=== PATIENT | female | born 1990 | race Caucasian/White ===

== ENCOUNTER 2016-10-24 17:46 | Emergency (ER) | payer MEDICAID ==
[~2016-10-24] VITALS: Ht 165.1 cm; Wt 77.2 kg
[~2016-10-24 17:46] MED LIST: IBUP-1222 PO; ONDA4TAB7; OXYC-302 PO; PREN1TAB60
[2016-10-24] MEDS ORDERED: SODIUM CHLORIDE 0.9% 1,000ML IVBOLUS ONE (18:00)
[2016-10-24 18:41] VITALS: BP 123/76
[2016-10-24 18:41] LABS: HEMOGLOBIN 13.9 g/dL (11.7-16.4)
[2016-10-24 18:55] LABS: ASPARTATE AMINO TRANSFERASE 12 U/L (15-37); BLOOD UREA NITROGEN 11 mg/dL (7-18)
== END 2016-10-24 19:55 | disposition home or self-care (01) ==
LOC: ED 19:49
DX: O20.9 Hemorrhage in early pregnancy, unspecified (principal)
CPT/HCPCS: 36415; 76830; 80053; 84702; 85025; 99285; J7030

== ENCOUNTER 2017-04-03 18:17 | Outpatient (CLI) | payer MEDICAID ==
[~2017-04-03] VITALS: Ht 162.6 cm; Wt 81.8 kg
[2017-04-03 18:33] VITALS: BP 118/57
== END 2017-04-03 19:25 | disposition home or self-care (01) ==
LOC: LDOP 18:17
PROVIDERS: ATTEND Obstetrics & Gynecology
DX: O26.892 Other specified pregnancy related conditions, second trimester (principal); O9A.212 Injury, poisoning and certain other consequences of external causes complicating pregnancy, second trimester; M54.9 Dorsalgia, unspecified; V89.2XXA Person injured in unspecified motor-vehicle accident, traffic, initial encounter; Z3A.21 21 weeks gestation of pregnancy
CPT/HCPCS: 59025; 99211; G0463

== ENCOUNTER 2017-04-03 19:29 | Emergency (ER) | payer MEDICAID ==
[~2017-04-03] VITALS: Ht 162.6 cm; Wt 80.0 kg
[2017-04-03 19:40] VITALS: BP 117/70
== END 2017-04-03 21:14 | disposition home or self-care (01) ==
LOC: ED 19:33
DX: O9A.212 Injury, poisoning and certain other consequences of external causes complicating pregnancy, second trimester (principal); Z3A.20 20 weeks gestation of pregnancy; S39.012A Strain of muscle, fascia and tendon of lower back, initial encounter; V49.9XXA Car occupant (driver) (passenger) injured in unspecified traffic accident, initial encounter; Y93.89 Activity, other specified; Y92.89 Other specified places as the place of occurrence of the external cause; Y99.8 Other external cause status
CPT/HCPCS: 59025; 81001; 99211; 99283; G0463

== ENCOUNTER 2017-07-05 16:56 | Outpatient (CLI) | payer MEDICAID ==
[~2017-07-05] VITALS: Ht 162.6 cm; Wt 90.0 kg
[2017-07-05 17:13] VITALS: BP 118/69
== END 2017-07-05 18:00 | disposition home or self-care (01) ==
LOC: LDOP 16:56
PROVIDERS: ATTEND Obstetrics & Gynecology
DX: O26.893 Other specified pregnancy related conditions, third trimester (principal); R10.9 Unspecified abdominal pain; Z3A.32 32 weeks gestation of pregnancy
CPT/HCPCS: 59025; 82962; 99211; G0463

== ENCOUNTER 2017-08-04 23:01 | Outpatient (CLI) | payer MEDICAID ==
[~2017-08-04] VITALS: Ht 162.6 cm; Wt 89.5 kg
[2017-08-04 23:12] VITALS: BP 130/75
== END 2017-08-05 01:13 | disposition home or self-care (01) ==
LOC: LDOP 23:01
PROVIDERS: ATTEND Obstetrics & Gynecology
DX: O62.9 Abnormality of forces of labor, unspecified (principal); Z3A.38 38 weeks gestation of pregnancy
CPT/HCPCS: 59025; 99211; G0463

== ENCOUNTER 2017-08-10 20:57 | Inpatient (IN) | payer MEDICAID ==
[~2017-08-10] VITALS: Ht 162.6 cm; Wt 89.1 kg
[2017-08-10] MEDS ORDERED: D5%-LACTATED RINGERS 1,000 ML IV SCH (20:58)
[2017-08-10] MEDS ORDERED: OXYTOCIN 30U/ 0.9% NaCL 500ML 500 ML IV PRN (20:58)
[2017-08-10] MEDS ORDERED: OXYTOCIN 30U/ 0.9% NaCL 500ML 500 ML IV ONE (20:58)
[2017-08-10] MEDS ORDERED: MISOPROSTOL 25 MCG TABLET VG PRN (21:00)
[2017-08-10] MEDS ORDERED: SODIUM CITRATE/CITRIC ACID 30 ML UDC PO PRN (21:00)
[2017-08-10] MEDS ORDERED: ONDANSETRON 2MG/ML, 2ML IVPush PRN (21:00)
[2017-08-10] MEDS ORDERED: CALCIUM CARBONATE 500 MG TAB.CHEW PO PRN (21:00)
[2017-08-10] MEDS ORDERED: FENTANYL PF 100 MCG/2ML IV PRN (21:00)
[2017-08-10] MEDS ORDERED: METOCLOPRAMIDE 5 MG/ML, 2ML IVPush PRN (21:00)
[2017-08-10] MEDS ORDERED: TERBUTALINE 1 MG/ML, 1ML IVPush PRN (21:00)
[2017-08-10] MEDS ORDERED: FENTANYL PF 100 MCG/2ML IVPush PRN (21:00)
[2017-08-10] MEDS ORDERED: NEWBORN KIT ONE (21:22)
[2017-08-10] MEDS: LACTATED RINGERS 1,000 ML IV SCH (21:25)
[2017-08-10 21:30] LABS: BASOPHILS # (AUTO) 0.03 x10^3/uL (0-0.1); BASOPHILS % (AUTO) 0 % (0-1); EOSINOPHILS # (AUTO) 0.05 x10^3/uL (0-0.4); EOSINOPHILS % (AUTO) 1 % (1-7); LYMPHOCYTES # (AUTO) 2.28 x10^3/uL (1-3.4); LYMPHOCYTES % (AUTO) 28 % (22-44); MD NO; MEAN CORPUSCULAR HEMOGLOBIN 29.4 pg (27.0-34.8); MEAN CORPUSCULAR HGB CONC 33.4 g/dL (32.4-35.8); MEAN PLATELET VOLUME 9.2 fL (7.4-10.4); MONOCYTES # (AUTO) 0.45 x10^3/uL (0.2-0.8); MONOCYTES % (AUTO) 6 % (2-9); NEUTROPHILS # (AUTO) 5.31 x10^3/uL (1.8-6.8); NEUTROPHILS % (AUTO) 65 % (42-75); PLATELET COUNT 191 x10^3/uL (130-400); RED BLOOD COUNT 4.32 x10^6/uL (3.82-5.3); RED CELL DISTRIBUTION WIDTH 14.5 % (9.6-15.2)
[2017-08-10] MEDS: PLEASE ENTER HEIGHT AND WEIGHT MC SCH (21:30)
[2017-08-10] MEDS: PLEASE ENTER ALLERGIES MC SCH (21:30)
[2017-08-10] MEDS ORDERED: MISOPROSTOL 25 MCG TABLET ONE (21:44)
[2017-08-10 22:04] VITALS: BP 126/67
[2017-08-10] MEDS ORDERED: OXYTOCIN 30U/ 0.9% NaCL 500ML 500 ML ONE (22:59)
[2017-08-11] MEDS: LACTATED RINGERS 1,000 ML IV SCH ×3 (03:04→20:58)
[2017-08-11] MEDS: PLEASE ENTER ALLERGIES MC SCH (05:30)
[2017-08-11] MEDS: PLEASE ENTER HEIGHT AND WEIGHT MC SCH (05:30)
[2017-08-11 08:01] VITALS: BP 111/75
[2017-08-11] MEDS ORDERED: LACTATED RINGERS 1,000 ML IV SCH (09:24)
[2017-08-11] MEDS ORDERED: FENTANYL/BUPIV./NS/PF 250 ML EPIDCONT SCH (09:24)
[2017-08-11] MEDS ORDERED: FENTANYL/BUPIV./NS/PF 250 ML EPIDCONT ONE (09:27)
[2017-08-11] MEDS ORDERED: BUPIVACAINE/PF 0.25% ONE (09:27)
[2017-08-11] MEDS ORDERED: EPHEDRINE 50 MG/ML, 1ML IVPush PRN (09:30)
[2017-08-11] MEDS ORDERED: NALOXONE 0.4 MG/ML, 1ML IVPush PRN (09:30)
[2017-08-11] MEDS ORDERED: LACTATED RINGERS 1,000 ML IVBOLUS PRN (09:30)
[2017-08-11] MEDS ORDERED: FENTANYL PF 100 MCG/2ML ONE (09:55)
[2017-08-11] MEDS ORDERED: EPHEDRINE 50 MG/ML, 1ML ONE (10:29)
[2017-08-11] MEDS ORDERED: MEASLES,MUMPS&RUBELLA VACC/PF 0.5 ML SQ PRN (12:30)
[2017-08-11] MEDS ORDERED: CALCIUM CARBONATE 500 MG TAB.CHEW PO PRN (12:30)
[2017-08-11] MEDS ORDERED: MAGNESIUM HYDROXIDE 8%, 30ML UDC PO PRN (12:30)
[2017-08-11] MEDS ORDERED: ONDANSETRON 2MG/ML, 2ML IV PRN (12:30)
[2017-08-11] MEDS ORDERED: RHOGAM FROM BLOOD BANK 1 NOTE EA IM/IV ONE (12:30)
[2017-08-11] MEDS ORDERED: DOCUSATE 100 MG CAPSULE PO PRN (12:30)
[2017-08-11] MEDS ORDERED: ACETAMINOPHEN 325 MG TABLET PO PRN ×2 (12:30)
[2017-08-11] MEDS ORDERED: DIPH,PERTUSS(ACELL),TET VAC/PF NC IM-VACC PRN (12:30)
[2017-08-11] MEDS ORDERED: MISOPROSTOL 200 MCG TABLET PR PRN (12:30)
[2017-08-11] MEDS ORDERED: OXYcodone/APAP 5/325MG TABLET PO PRN (12:30)
[2017-08-11] MEDS ORDERED: MISOPROSTOL 200 MCG TABLET ONE (12:55)
[2017-08-11] MEDS ORDERED: OXYTOCIN 30U/ 0.9% NaCL 500ML 500 ML ONE (12:55)
[2017-08-11] MEDS: OXYTOCIN 30U/ 0.9% NaCL 500ML 500 ML IV SCH ×2 (14:10→22:26)
[2017-08-11 16:00] VITALS: BP 121/64
[2017-08-11] MEDS: IBUPROFEN 600 MG TABLET PO PRN (17:59)
[2017-08-11] MEDS: OXYcodone/APAP 5/325MG TABLET PO PRN (18:48)
[2017-08-11 19:42] VITALS: BP 125/75
[2017-08-11 21:53] LABS: BASOPHILS # (AUTO) 0.05 x10^3/uL (0-0.1); BASOPHILS % (AUTO) 1 % (0-1); EOSINOPHILS # (AUTO) 0.04 x10^3/uL (0-0.4); EOSINOPHILS % (AUTO) 0 % (1-7); LYMPHOCYTES # (AUTO) 1.86 x10^3/uL (1-3.4); LYMPHOCYTES % (AUTO) 19 % (22-44); MD NO; MEAN CORPUSCULAR HEMOGLOBIN 29.6 pg (27.0-34.8); MEAN CORPUSCULAR HGB CONC 33.7 g/dL (32.4-35.8); MEAN CORPUSCULAR VOLUME 87.8 fL (80-100); MEAN PLATELET VOLUME 9.4 fL (7.4-10.4); MONOCYTES % (AUTO) 6 % (2-9); NEUTROPHILS % (AUTO) 74 % (42-75); PLATELET COUNT 171 x10^3/uL (130-400); RED BLOOD COUNT 3.86 x10^6/uL (3.82-5.3); RED CELL DISTRIBUTION WIDTH 14.8 % (9.6-15.2)
[2017-08-12 00:20] VITALS: BP 116/74
[2017-08-12 04:30] VITALS: BP 118/76
[2017-08-12] MEDS: LACTATED RINGERS 1,000 ML IV SCH (04:58)
[2017-08-12] MEDS: OXYcodone/APAP 5/325MG TABLET PO PRN ×2 (05:15→10:31)
[2017-08-12] MEDS: IBUPROFEN 600 MG TABLET PO PRN (05:15)
[2017-08-12 07:35] VITALS: BP 114/78
[2017-08-12] MEDS ORDERED: PRENATAL VIT/IRON/FA 1 EACH TABLET PO SCH (09:00)
[2017-08-12] MEDS ORDERED: IBUP-1222 PO (09:46)
== END 2017-08-12 14:50 | disposition home or self-care (01) | DRG 775 ==
LOC: LDIP 20:57 → 2NW 08-11 16:06
PROVIDERS: ADMIT Obstetrics & Gynecology; ATTEND Obstetrics & Gynecology
PROC: 10E0XZZ Delivery of Products of Conception, External Approach (ICD-10-PCS; principal; 2017-08-10)
PROC: 3E033VJ Introduction of Other Hormone into Peripheral Vein, Percutaneous Approach (ICD-10-PCS; 2017-08-10)
PROC: 3E0R3BZ Introduction of Anesthetic Agent into Spinal Canal, Percutaneous Approach (ICD-10-PCS; 2017-08-10)
PROC: 00HU33Z Insertion of Infusion Device into Spinal Canal, Percutaneous Approach (ICD-10-PCS; 2017-08-10)
DX: O80 Encounter for full-term uncomplicated delivery (principal); Z37.0 Single live birth; Z3A.39 39 weeks gestation of pregnancy
CPT/HCPCS: 36415; 82962; 85025; 86850; 86900; J3010; J2590; J7120

== ENCOUNTER → 2018-11-14 | Outpatient (CLI) | payer OTHER | END | disposition home or self-care (01) | LOC: CFH 14:28 | PROVIDERS: ATTEND Obstetrics & Gynecology | DX: T83.32XA Displacement of intrauterine contraceptive device, initial encounter (principal) | CPT/HCPCS: 74018 ==

== ENCOUNTER 2019-12-24 21:11 | Outpatient (CLI) | payer MEDICAID, OTHER ==
[~2019-12-24] VITALS: Ht 162.6 cm; Wt 92.0 kg
== END 2019-12-24 22:50 | disposition home or self-care (01) ==
LOC: LDOP 21:11
PROVIDERS: ATTEND Obstetrics & Gynecology
DX: O26.893 Other specified pregnancy related conditions, third trimester (principal); R10.9 Unspecified abdominal pain; Z3A.35 35 weeks gestation of pregnancy
CPT/HCPCS: 59025; 99211; G0463

== ENCOUNTER 2020-01-15 17:04 | Outpatient (CLI) | payer MEDICAID ==
[~2020-01-15] VITALS: Ht 162.6 cm; Wt 94.1 kg
[2020-01-15 17:32] VITALS: BP 109/67
[2020-01-15 17:35] LABS: MICROSCOPIC NOT IND
== END 2020-01-15 18:25 | disposition home or self-care (01) ==
LOC: LDOP 17:04
PROVIDERS: ATTEND Obstetrics & Gynecology
DX: O26.893 Other specified pregnancy related conditions, third trimester (principal); R10.2 Pelvic and perineal pain; Z3A.38 38 weeks gestation of pregnancy
CPT/HCPCS: 59025; 81003; 87086; 99211; G0463

== ENCOUNTER 2020-01-20 12:58 | Inpatient (IN) | payer MEDICAID, OTHER ==
[~2020-01-20] VITALS: Ht 162.6 cm; Wt 94.0 kg
[2020-01-20 13:16] VITALS: BP 120/80
[2020-01-20] MEDS ORDERED: OXYTOCIN 30U/ 0.9% NaCL 500ML 500 ML IV ONE (13:55)
[2020-01-20] MEDS ORDERED: CALCIUM CARBONATE 500 MG TAB.CHEW PO PRN ×2 (14:00→22:30)
[2020-01-20] MEDS ORDERED: TERBUTALINE 1 MG/ML, 1ML IVPush PRN (14:00)
[2020-01-20] MEDS ORDERED: FENTANYL PF 100 MCG/2ML IVPush PRN (14:00)
[2020-01-20] MEDS ORDERED: MISOPROSTOL 25 MCG TABLET VG PRN (14:00)
[2020-01-20] MEDS ORDERED: FENTANYL PF 100 MCG/2ML IV PRN (14:00)
[2020-01-20] MEDS ORDERED: ONDANSETRON 2MG/ML, 2ML IVPush PRN ×2 (14:00→18:30)
[2020-01-20] MEDS ORDERED: TERBUTALINE 1 MG/ML, 1ML SQ PRN (14:00)
[2020-01-20] MEDS ORDERED: NEWBORN KIT ONE (14:06)
[2020-01-20] MEDS ORDERED: MISOPROSTOL 25 MCG TABLET ONE (14:06)
[2020-01-20] MEDS ORDERED: LIDOCAINE 1%, 20ML ONE ×2 (14:06→17:38)
[2020-01-20] MEDS ORDERED: MISOPROSTOL 200 MCG TABLET ONE (14:07)
[2020-01-20 14:36] LABS: BASOPHILS # (AUTO) 0.04 x10^3/uL (0-0.1); BASOPHILS % (AUTO) 1 % (0-1); EOSINOPHILS # (AUTO) 0.03 x10^3/uL (0-0.4); EOSINOPHILS % (AUTO) 0 % (1-7); LYMPHOCYTES # (AUTO) 1.55 x10^3/uL (1-3.4); LYMPHOCYTES % (AUTO) 21 % (22-44); MD NO; MEAN CORPUSCULAR HEMOGLOBIN 29.6 pg (27.0-34.8); MEAN CORPUSCULAR VOLUME 86.9 fL (80-100); MEAN PLATELET VOLUME 9.7 fL (7.4-10.4); MONOCYTES # (AUTO) 0.44 x10^3/uL (0.2-0.8); MONOCYTES % (AUTO) 6 % (2-9); NEUTROPHILS # (AUTO) 5.47 x10^3/uL (1.8-6.8); NEUTROPHILS % (AUTO) 73 % (42-75); PLATELET COUNT 214 x10^3/uL (130-400); RED BLOOD COUNT 4.04 x10^6/uL (3.82-5.3); RED CELL DISTRIBUTION WIDTH 15.1 % (9.6-15.2)
[2020-01-20] MEDS ORDERED: OXYTOCIN 30U/ 0.9% NaCL 500ML 500 ML ONE ×2 (15:21→23:05)
[2020-01-20] MEDS: LACTATED RINGERS 1,000 ML IV SCH ×2 (15:30→17:25)
[2020-01-20] MEDS: D5%-LACTATED RINGERS 1,000 ML IV SCH (17:20)
[2020-01-20] MEDS ORDERED: BUPIVACAINE 0.25% ONE (17:30)
[2020-01-20] MEDS ORDERED: FENTANYL/BUPIV./NS/PF 250 ML EPIDCONT ONE ×2 (17:31→17:38)
[2020-01-20] MEDS ORDERED: LIDOCAINE/PF 1.5%-EPI 1:200K, 30ML ONE (17:38)
[2020-01-20] MEDS ORDERED: LACTATED RINGERS 1,000 ML IV SCH (18:04)
[2020-01-20] MEDS ORDERED: FENTANYL/BUPIV./NS/PF 250 ML EPIDCONT SCH (18:04)
[2020-01-20] MEDS ORDERED: ONDANSETRON 2MG/ML, 2ML ONE ×2 (18:22→23:05)
[2020-01-20] MEDS ORDERED: NALOXONE 0.4 MG/ML, 1ML IVPush PRN (18:30)
[2020-01-20] MEDS ORDERED: LACTATED RINGERS 1,000 ML IVBOLUS PRN (18:30)
[2020-01-20] MEDS ORDERED: DIPHENHYDRAMINE 50 MG/ML, 1ML IVPush PRN (18:30)
[2020-01-20] MEDS ORDERED: EPHEDRINE 50 MG/ML, 1ML IVPush PRN (18:30)
[2020-01-20] MEDS ORDERED: OXYTOCIN 30U/ 0.9% NaCL 500ML 500 ML IV SCH (22:04)
[2020-01-20] MEDS ORDERED: ONDANSETRON 2MG/ML, 2ML IV PRN (22:30)
[2020-01-20] MEDS ORDERED: OXYcodone/APAP 5/325MG TABLET PO PRN (22:30)
[2020-01-20] MEDS ORDERED: MISOPROSTOL 200 MCG TABLET PR PRN (22:30)
[2020-01-20] MEDS ORDERED: SIMETHICONE 80 MG CHEW TAB PO PRN (22:30)
[2020-01-20] MEDS ORDERED: IBUPROFEN 600 MG TABLET ONE (23:08)
[2020-01-20] MEDS: IBUPROFEN 600 MG TABLET PO PRN (23:11)
[2020-01-20 23:30] VITALS: BP 112/74
[2020-01-21] MEDS: OXYcodone/APAP 5/325MG TABLET PO PRN ×5 (00:46→21:47)
[2020-01-21] MEDS: D5%-LACTATED RINGERS 1,000 ML IV SCH (01:20)
[2020-01-21 03:38] VITALS: BP 117/74
[2020-01-21] MEDS: IBUPROFEN 600 MG TABLET PO PRN ×3 (04:54→18:49)
[2020-01-21 05:23] LABS: BASOPHILS # (AUTO) 0.07 x10^3/uL (0-0.1); BASOPHILS % (AUTO) 1 % (0-1); EOSINOPHILS # (AUTO) 0.03 x10^3/uL (0-0.4); EOSINOPHILS % (AUTO) 0 % (1-7); LYMPHOCYTES # (AUTO) 2.21 x10^3/uL (1-3.4); LYMPHOCYTES % (AUTO) 23 % (22-44); MD NO; MEAN CORPUSCULAR HEMOGLOBIN 29.3 pg (27.0-34.8); MEAN CORPUSCULAR HGB CONC 33.5 g/dL (32.4-35.8); MEAN CORPUSCULAR VOLUME 87.7 fL (80-100); MEAN PLATELET VOLUME 9.1 fL (7.4-10.4); MONOCYTES % (AUTO) 7 % (2-9); NEUTROPHILS # (AUTO) 6.81 x10^3/uL (1.8-6.8); NEUTROPHILS % (AUTO) 69 % (42-75); PLATELET COUNT 175 x10^3/uL (130-400); RED BLOOD COUNT 3.52 x10^6/uL (3.82-5.3); RED CELL DISTRIBUTION WIDTH 14.9 % (9.6-15.2)
[2020-01-21 09:00] VITALS: BP 106/73
[2020-01-21] MEDS ORDERED: PRENATAL VIT/IRON/FA 1 EACH TABLET PO SCH (09:00)
[2020-01-21] MEDS: DOCUSATE 100 MG CAPSULE PO PRN ×2 (11:47→21:47)
[2020-01-21] MEDS ORDERED: OXYC-302 PO (13:57)
[2020-01-21] MEDS ORDERED: IBUP-1222 PO (13:57)
[2020-01-21] MEDS ORDERED: DOCU-131 PO (13:57)
[2020-01-21] MEDS: LACTATED RINGERS 1,000 ML IV SCH (18:20)
[2020-01-21 20:10] VITALS: BP 122/82
== END 2020-01-21 23:00 | disposition home or self-care (01) | DRG 807 ==
LOC: LDOP 12:58 → LDIP 13:47 → 2NW 23:53
PROVIDERS: ADMIT Obstetrics & Gynecology; ATTEND Obstetrics & Gynecology
PROC: 0KQM0ZZ Repair Perineum Muscle, Open Approach (ICD-10-PCS; principal; 2020-01-20)
PROC: 10E0XZZ Delivery of Products of Conception, External Approach (ICD-10-PCS; 2020-01-20)
PROC: 3E0R3BZ Introduction of Anesthetic Agent into Spinal Canal, Percutaneous Approach (ICD-10-PCS; 2020-01-20)
PROC: 00HU33Z Insertion of Infusion Device into Spinal Canal, Percutaneous Approach (ICD-10-PCS; 2020-01-20)
DX: O82 Encounter for cesarean delivery without indication (principal); Z37.0 Single live birth; O77.0 Labor and delivery complicated by meconium in amniotic fluid; O70.1 Second degree perineal laceration during delivery; O99.344 Other mental disorders complicating childbirth; Z3A.39 39 weeks gestation of pregnancy; F41.8 Other specified anxiety disorders
CPT/HCPCS: 36415; J3490; 85025; 86592; 86850; 86900; 87635; G0378; J2405; J2590; J3010; J7120